=== PATIENT | female | born 1985 | race Caucasian/White ===

== ENCOUNTER 2019-09-18 20:03 | Emergency (ER) | payer MEDICAID ==
[~2019-09-18] VITALS: Ht 160 cm; Wt 94.3 kg
[2019-09-18 20:13] VITALS: BP_SYST 163
[2019-09-18 21:26] LABS: BILIRUBIN,URINE NEGATIVE (NEGATIVE); BLOOD, URINE 2+ (NEGATIVE); COLOR,URINE YELLOW (YELLOW); GLUCOSE,URINE NEGATIVE (NEGATIVE); KETONES,URINE NEGATIVE (NEGATIVE); LEUKOCYTE ESTERASE ,URINE 2+ (NEGATIVE); NITRITE, URINE POSITIVE (NEGATIVE); PROTEIN URINE TRACE (NEGATIVE); UROBILINOGEN,URINE 0.2 (0.2-1.0)
[2019-09-18 21:37] LABS: CLARITY/URINE HAZY (CLEAR)
[2019-09-18] MEDS ORDERED: AZITHROMYCIN 250 MG TABLET PO ONE (21:45)
[2019-09-18] MEDS ORDERED: cefTRIAXone 250 MG VIAL IM ONE (21:45)
[2019-09-18] MEDS ORDERED: KETOROLAC TROMETHAMINE 60 MG/2 ML VIAL IM ONE (21:45)
[2019-09-18 21:58] LABS: BACTERIA,URINE MANY /HPF (None Seen); WBC,URINE >100 /HPF (0-3)
[2019-09-18 21:59] LABS: CALCIUM OXALATE CRYSTALS,UR 0-10 /HPF (None Seen)
[2019-09-18] MEDS ORDERED: LIDOCAINE 1%, 20 ML MDV 20 ML ONE (22:04)
[2019-09-18] MEDS ORDERED: AZITHROMYCIN 250 MG TABLET ONE (22:17)
[2019-09-18 22:30] VITALS: BP_SYST 131
== END 2019-09-18 22:34 | disposition home or self-care (01) ==
LOC: SED 20:03
DX: N39.0 Urinary tract infection, site not specified (principal); I10 Essential (primary) hypertension; Z88.8 Allergy status to other drugs, medicaments and biological substances; Z88.2 Allergy status to sulfonamides
CPT/HCPCS: 74018; 81000; 81025; 87086; 87491; 87591; 96372; 99284; J0696; J1885; J2001; Q0144